=== PATIENT | male | born 2000 | race African-American/Black ===

== ENCOUNTER 2023-03-24 18:46 | Emergency (ER) | payer SELFPAY ==
[2023-03-24] MEDS ORDERED: Lidocaine 1% (PF) 30 ML VIAL ONE (18:58)
[2023-03-24] MEDS ORDERED: Sulfameth/Trimethoprim DS 800-160mg TAB ONE (19:17)
[2023-03-24] MEDS ORDERED: Acetaminophen 500 MG TAB ONE (19:17)
[2023-03-24] MEDS ORDERED: Ibuprofen 800 MG TAB ONE (19:17)
== END 2023-03-24 19:24 | disposition home or self-care (01) ==
LOC: NAV ERS 18:46
DX: L02.01 Cutaneous abscess of face (principal); L73.9 Follicular disorder, unspecified
CPT/HCPCS: 10060; J2001